=== PATIENT | male | born 1950 | race Caucasian/White ===

== ENCOUNTER → 2017-05-18 | Outpatient (CLI) | payer OTHER ==
--- NOTE | 2017-05-18 11:01 | RADRPT ---
EXAM DATE/TIME: 05/18/2017 00:00 [place] COMPARISON: No previous studies available for comparison. INDICATIONS : Dysphagia. FLUORO TIME: 1.3 minutes IMAGE COUNT: 0 CONTRAST: Dose as prescribed by speech pathologist. MEDICAL HISTORY : None. SURGICAL HISTORY : endoscopy with dilitation 1 month ago. ENCOUNTER: Initial ACUITY: 1 week PAIN SCORE: 0/10 LOCATION: Bilateral neck FINDINGS: A modified barium swallow was performed with speech pathology. Patient was given a variety of liquids to swallow. Deglutition is grossly normal with unobstructed passage of barium into the proximal esophagus. There is no aspiration or vestibular penetration. For a full detailed report, see report by the speech pathologist. CONCLUSION: Negative exam. Kirill Rosenberg MD on May 18, 2017 at 10:59 Board Certified Radiologist. This report was verified electronically.
== END ==
LOC: HRAD 10:02
DX: R13.10 Dysphagia, unspecified (principal)
CPT/HCPCS: 74230; 92611; G8996; G8997; G8998